=== PATIENT | male | born 1975 | race Caucasian/White ===

== ENCOUNTER → 2023-09-09 13:26 | Outpatient (CLI) | payer OTHER, SELFPAY ==
--- NOTE | ~2023-09-09 | XR_ITS ---
EXAMINATION: XR abdomen/kub 1V DATE: 09/09/2023 14:11 INDICATION: Abdominal pain. TECHNIQUE: A supine view of the abdomen on 2 radiographs was obtained. COMPARISON: CT abdomen and pelvis 08/23/2005 FINDINGS: There are no dilated loops of bowel. There is a small volume of stool in the colon. There a re surgical clips in right abdomen. IMPRESSION: 1. Nonobstructive bowel gas pattern. Reviewed, dictated and finalized at location E. [place] [employer]
== END ==
PROVIDERS: PCP Student in an Organized Health Care Education/Training Program
DX: R10.9 Unspecified abdominal pain (principal); Z94.4 Liver transplant status
CPT/HCPCS: 74018

== ENCOUNTER 2023-12-31 12:59 | Outpatient (CLI) | payer OTHER, SELFPAY ==
--- NOTE | ~2023-12-31 | XR_ITS ---
EXAMINATION: XR chest 2V DATE: 12/31/2023 13:30 INDICATION: Assess for infection patient with one month of fatigue and night sweats TECHNIQUE: PA and lateral views of the chest were obtained. COMPARISON: None FINDINGS: The lungs are clear with no focal airspace opacities, pulmonary edema, pleural effusion or pneumothor ax. The cardiomediastinal silhouette is normal. Multiple surgical clips in right upper quadrant likel y related to reported liver transplant. IMPRESSION: 1. No acute cardiopulmonary disease. Reviewed, dictated and finalized at location A.
--- NOTE | ~2023-12-31 | US_ITS ---
EXAMINATION: US right upper quadrant DATE: 12/31/2023 13:27 INDICATION: Hepatic transplant presenting with night sweats, fatigue and loss of appetite TECHNIQUE: Multiple grayscale and Doppler ultrasound images of the abdomen were obtained. COMPARISON: None FINDINGS: Pancreas is normal. Liver has normal echogenicity and contour, with a smooth surface. No liver lesion identified. No intrahepatic biliary duct dilation suspected. Portal venous flow was seen in the hepa topetal, normal direction and has normal Doppler waveform. There is also hepatofugal, normal directio nal flow with normal waveforms in the 2 visualized draining hepatic veins. Normal arterial waveforms in the hepatic artery. Gallbladder is not visualized and reportedly surgically absent. Visualized por tion of the common bile duct measures 10 mm. The visualized proximal inferior vena cava is normal. IMPRESSION: 1. Common bile duct measures up to 10 mm which is within normal limits post cholecystectomy. Otherwis e unremarkable right upper quadrant ultrasound. Reviewed, dictated and finalized at location A. IMPRESSION: 1. Common bile duct measures up to 10 mm which is within normal limits post cho lecystectomy. Otherwise unremarkable right upper quadrant ultrasound.
== END 2023-12-31 13:00 ==
LOC: GOSHIMG 13:00
PROVIDERS: PCP Student in an Organized Health Care Education/Training Program
DX: R61 Generalized hyperhidrosis (principal); R63.0 Anorexia; R53.83 Other fatigue; Z94.4 Liver transplant status; Z90.49 Acquired absence of other specified parts of digestive tract
CPT/HCPCS: 71046; 76705